=== PATIENT | male | born 1975 | race Caucasian/White ===

== ENCOUNTER 2020-04-16 11:27 | Outpatient (REF) | payer OTHER, SELFPAY | END 2020-04-16 11:28 | disposition home or self-care (01) | LOC: HO.LAB 11:27 | PROVIDERS: Visit Provider Internal Medicine | DX: Z20.828 Contact with and (suspected) exposure to other viral communicable diseases (principal) | CPT/HCPCS: C9803; U0003 ==

== ENCOUNTER 2021-09-22 13:19 | Outpatient (REF) | payer BC, SELFPAY ==
--- NOTE | ~2021-09-22 | XR_ITS ---
EXAMINATION: XR KNEE, LEFT CLINICAL INFORMATION: Pain. COMPARISON: None TECHNIQUE: Four views of the left knee. FINDINGS: There is no fracture. No dislocation. No joint effusion. Moderate to marked degenerative joint disease of the knee. There is joint narrowing and marginal bone spurs at all 3 joint space compartments. This is most severe at the medial femoral tibial joint but there is near [id number] contact of the femur and tibia. No bone erosion. No soft tissue calcification. XR/XR knee LT 4V IMPRESSION: 1. No acute abnormality. 2. Tricompartment degenerative joint disease of the knee.
--- NOTE | ~2021-09-22 | XR_ITS ---
EXAMINATION: XR KNEE, RIGHT CLINICAL INFORMATION: Pain COMPARISON: None TECHNIQUE: Four views of the right knee. FINDINGS: There is no fracture. No dislocation. No joint effusion. Mild joint narrowing of the medial femoral tibial joint. No significant bone spur. No bony erosions. No soft tissue calcification. XR/XR knee RT 4V IMPRESSION: 1. No acute abnormality. 2. Mild degenerative joint disease of the medial femoral tibial compartment.
== END 2021-09-22 13:20 | disposition home or self-care (01) ==
LOC: HO.HMGCX 13:19
PROVIDERS: PCP Internal Medicine
DX: R52 Pain, unspecified (principal)
CPT/HCPCS: 73564

== ENCOUNTER 2022-04-18 16:38 | Outpatient (REF) | payer BC, MEDICAID, SELFPAY ==
[2022-04-18 17:35] LABS: Influenza A PCR POSITIVE (Negative); Influenza B PCR NEGATIVE (Negative); Resp Syncy Virus RNA Qual PCR NEGATIVE (Negative); SARS COV2 PCR INHOUSE NEGATIVE (Negative)
== END 2022-04-18 16:39 | disposition home or self-care (01) ==
LOC: HO.LNP 16:38
PROVIDERS: Visit Provider Internal Medicine
DX: Z20.822 Contact with and (suspected) exposure to COVID-19 (principal); R09.89 Other specified symptoms and signs involving the circulatory and respiratory systems
CPT/HCPCS: 0241U

== ENCOUNTER 2022-06-20 09:48 | Outpatient (REF) | payer BC, MEDICAID, SELFPAY ==
--- NOTE | ~2022-06-20 | XR_ITS ---
EXAMINATION: XR KNEE AP STANDING CLINICAL INFORMATION: Pain COMPARISON: Previous x-ray August 2021 TECHNIQUE: 2 views of each knee FINDINGS: Right: Bone alignment is normal. No fracture or dislocation. Small patellar osteophyte on the sunrise view at the patellofemoral joint. Left: Bone alignment is normal. No fracture or dislocation. Osteoarthritis with joint space narrowing and osteophyte formation at the medial femoral joint. Small osteophytes patellofemoral joint on the sunrise view. XR/XR knee LT 1V IMPRESSION: Bilateral arthritis, left greater than right.
--- NOTE | ~2022-06-20 | XR_ITS ---
EXAMINATION: XR KNEE AP STANDING CLINICAL INFORMATION: Pain COMPARISON: Previous x-ray August 2021 TECHNIQUE: 2 views of each knee FINDINGS: Right: Bone alignment is normal. No fracture or dislocation. Small patellar osteophyte on the sunrise view at the patellofemoral joint. Left: Bone alignment is normal. No fracture or dislocation. Osteoarthritis with joint space narrowing and osteophyte formation at the medial femoral joint. Small osteophytes patellofemoral joint on the sunrise view. XR/XR knee standing BI IMPRESSION: Bilateral arthritis, left greater than right.
--- NOTE | ~2022-06-20 | XR_ITS ---
EXAMINATION: XR KNEE AP STANDING CLINICAL INFORMATION: Pain COMPARISON: Previous x-ray August 2021 TECHNIQUE: 2 views of each knee FINDINGS: Right: Bone alignment is normal. No fracture or dislocation. Small patellar osteophyte on the sunrise view at the patellofemoral joint. Left: Bone alignment is normal. No fracture or dislocation. Osteoarthritis with joint space narrowing and osteophyte formation at the medial femoral joint. Small osteophytes patellofemoral joint on the sunrise view. XR/XR knee RT 1V IMPRESSION: Bilateral arthritis, left greater than right.
== END 2022-06-20 09:49 | disposition home or self-care (01) ==
LOC: HO.HOSX 09:48
PROVIDERS: Visit Provider Physician Assistant
DX: M17.12 Unilateral primary osteoarthritis, left knee (principal); M25.561 Pain in right knee
CPT/HCPCS: 73560; 73565

== ENCOUNTER 2024-09-12 15:00 | Outpatient (AMB) | payer BC, MEDICAID, SELFPAY ==
[2024-09-12 15:03] VITALS: BP 128/88; PULSE 65; O2SAT 96; BMI 30.9
--- NOTE | 2024-09-12 15:03 | MHC.PC.OV ---
Vital Signs 09/12/24 15:03 Height 6 ft 4 in Weight 253 lb 8 oz BMI 30.9 BP 128/88 Blood Pressure Location Lt brachial Position Sitting Pulse 65 Pulse Source Pulse Oximeter Pulse Oximetry (%) 96 Oxygen Delivery Method Room Air Intake Visit Reasons: ANNUAL PE Allergies No Known Allergies [No Known Allergies*] Allergy (Verified 09/12/24 15:08) Medication List - Last Reconciled 09/12/24 by Rani Hutson MD No Known Home Meds Tobacco use date assessed: 09/12/24 Dental Screening Dental Screen Date: 09/12/24 Did you have a dental visit in the last 12 months?: Yes Did you have a dental problem in the last 6 months where you did not have access to dental care?: No Was dental information given to patient?: Patient has dentist HPI ANNUAL PE HPI Details History of Present Illness - The patient is a 49-year-old male presenting for a annual physical examination and request for sexually transmitted diseases (STD) screening. Last time seen was in 2022 - The patient denies any current urogenital symptoms such as penile discharge. - He requests STD testing for personal assurance before engaging in new relationships. - The patient reports no prior laboratory results are available during the visit. - He has a history of arthritis but notes no current swelling in the knee this year and reports being physically active. - The patient underwent colon cancer screening approximately two weeks ago with negative results. - The patient cannot recall the date of his last tetanus vaccination and mentions it was administered over ten years ago. Health Maintenance - STD blood test planned for HIV, herpes, hepatitis B, hepatitis C, and syphilis. - Cholesterol and blood sugar screening recommended, with instructions to fast prior to testing. - Colon cancer screening completed in July, negative result documented. - Tetanus vaccine inquiry and potential administration discussed. Patient Instructions - The patient will undergo blood tests for STD and general health screening after fasting for 10 hours. - Instructions provided on fasting and lab hours for testing. - Encouraged to drink water or black coffee during fasting if desired. - Urine test advised only if symptomatic or for routine checkup. Review of Systems - General: No fever no chills - Neurological: No headaches no dizziness - Ear nose throat: No sore throat no hearing difficulty no ear pain - Cardiovascular: No syncope, no chest pain, no palpitations - Gastrointestinal: No nausea vomiting or diarrhea - Endocrine: No polyuria polydipsia no heat intolerance - Genitourinary: No dysuria - Skin: No new complaints Physical Exam General: Cooperative, healthy appearing, comfortable, no acute distress Orientation: Patient oriented x3 Head: Normal to inspection Ears: Within normal limit visually Nose: Normal external nose present Face and sinus: Normal facial exam Eyes: Appearance normal, extraocular movement intact pupils reactive Neck: Normal visual inspection and supple Respiratory: Normal respiratory effort and able to speak in complete sentences. Clear to auscultation, no stridor Cardiovascular: S1 and S2 RRR GI: Normal to inspection. Soft to palpation and nontender Skin: Turgor normal, no acute findings Neuro: Patient oriented x3, motor sensory intact, balance intact, tandem pass Extremities: Normal to inspection, full range of motion [facility] Social History Housing: House Patient Tobacco Use Status: Never used Tobacco e-Cigarette/Vaping Use: Never Used service: No Current occupational status: employed Cognitive needs: No Hearing needs: No Vision needs: Yes Questionnaire PHQ-9 Over the last 2 weeks, how often have you been bothered by any of the following problems? 1. Little interest or pleasure in doing things: not at all 2. Feeling down, depressed, or hopeless: not at all 3. Trouble falling or staying asleep, or sleeping too much: not at all 4. Feeling tired or having little energy: not at all 5. Poor appetite or overeating: not at all 6. Feeling bad about yourself - or that you are a failure or have let yourself or your family down: not at all 7. Trouble concentrating on things, such as reading the newspaper or watching television: not at all 8. Moving or speaking so slowly that other people could have noticed. Or the opposite - being so fidgety or restless that you have been moving around a lot more than usual: not at all 9. Thoughts that you would be better off or of hurting yourself in some way: not at all Total score: 0 Depression Screening Interpretation: Negative Depression Screening Done: Yes 05262 - PHQ-9 Billing: Yes Source: Developed by Drs. Alec Hollis, Therese Yusuf, Elmer Canales and colleagues, with an educational camilo from [employer]. Thrive Questionnaire Date Thrive assessed: 09/12/24 I am a: Patient What is your living situation today?: I have a steady place to live Within the past 12 months, did the food you bought not last and you didn't have the money to get more?: Never true Within the past 12 months, did you worry whether your food would run out before you got money to buy more?: Never true Do you have trouble paying for medicines?: No Do you have trouble getting transportation to medical appointments?: No Do you have trouble paying your heating and electricity bill?: No Do you have trouble taking care of your child, family member or friend?: No Do you have trouble with day-to-day activities such as bathing, preparing meals, shopping, managing finances, etc.?: No Are you currently unemployed and looking for a job?: No Are you interested in more education?: No Please select the resources that you would like help with: None Currently or been in a relationship where the following occur: No concerns reported THRIVE Score: 0 AUDIT C Alcohol Use Questionnaire (AUDIT-C) 1. How often do you have a drink containing alcohol?: Monthly or less 2. How many drinks containing alcohol do you have on a typical day when you are drinking?: 1 or 2 3. How often do you have six or more drinks on one occasion?: Never Total Score: 1 Score Reviewed/Action Taken: Yes ODESSA-7 AMB Questionnaire ODESSA-7 Date ODESSA - 7 assessed: 09/12/24 Feeling nervous, anxious, or on edge: 0 = Not at all Not being able to stop or control worryin = Not at all Worrying too much about different things: 0 = Not at all Trouble relaxin = Not at all Being so restless that it is hard to sit still: 0 = Not at all Becoming easily annoyed or irritable: 0 = Not at all Feeling afraid as if something awful might happen: 0 = Not at all Total ODESSA-7 score (0-4 normal; 5-9 mild; 10-14 moderate; 15-21 severe): 0 Source: Developed by Drs. Alec Hollis, Therese Yusuf, Elmer Canales and colleagues, with an educational camilo from [employer]. ODESSA-7 Assessment Billing ODESSA-7 Assessment Tool: ODESSA-7 Assessment 32645 Physical exam (Primary Care) Vital Signs: Last Vital Signs Pulse 65 09/12/24 15:03 BP 128/88 09/12/24 15:03 Pulse Ox 96 09/12/24 15:03 Oxygen Delivery Method Room Air 09/12/24 15:03 BMI result Body Mass Index 30.9 Tobacco/Smoking Status: Tobacco use Status Tobacco use date assessed 09/12/24 09/12/24 15:09 Patient Tobacco Use Status Never used Tobacco 09/12/24 15:09 e-Cigarette/Vaping Use Never Used 09/12/24 15:09 PHQ-9: PHQ-9 Score PHQ-9: Total score 0 09/12/24 15:24 Depression Screening Interpretation: Negative Thrive Assessment: Date of Thrive Assessment Date Thrive assessed 09/12/24 09/12/24 15:09 Currently or been in a relationship where the following occur: No concerns reported Immunizations Boostrix Tdap 2.5 Lf unit-8 mcg-5 Lf/0.5 mL intramuscular syringe Performing Provider: Rani Hutson MD Performing Location: [facility] Administered by: Nancy Medel CMA on 09/12/24 15:24 Dose Route Admin Location Dispensed Lot Number Expiration Date [facility] Search Marketing [employer]st 0.5 mL IM Left Deltoid 0.5 mL [id number] 12/24/26 [id number] [employer] VIS Given Date VIS Provided VIS Publication Date 09/12/24 Single Vaccine 20 Eligibility Eligibility Date Funding Source Not [facility] Eligible 09/12/24 Private Coding Level of Care Code Est Pt Level 3 (09938) Est Pt Prev Care 40-64y(87051) Diagnoses Encounter for general adult medical examination with abnormal findings Z00.01 Screen for STD (sexually transmitted disease) Z11.3 Class 1 obesity due to excess calories without serious comorbidity with body mass index (BMI) of 30.0 to 30.9 in adult E66.811; E66.09; Z68.30 Obesity classification: adult class 1 (BMI 30 - 34.9) Serious obesity comorbidity presence: without serious comorbidity Body mass index: BMI 30.0-30.9 Additional Codes ODESSA-7 Assessment Billing - ODESSA-7 Assessment Tool: ODESSA-7 Assessment 70047 ([id number]) PHQ-9 - 47426 - PHQ-9 Billing: Yes ([id number]) Assessment & Plan Assessment & Plan (1) Encounter for general adult medical examination with abnormal findings: Code(s): Z00.01 - Encounter for general adult medical examination with abnormal findings Category: Medical (2) Screen for STD (sexually transmitted disease): Code(s): Z11.3 - Encounter for screening for infections with a predominantly sexual mode of transmission Category: Medical (3) Obesity due to excess calories: Code(s): E66.09 - Other obesity due to excess calories Category: Medical Qualifiers: Obesity classification: adult class 1 (BMI 30 - 34.9) Serious obesity comorbidity presence: without serious comorbidity Body mass index: BMI 30.0-30.9 Qualified Code(s): E66.811 - Obesity, class 1; E66.09 - Other obesity due to excess calories; Z68.30 - Body mass index [BMI] 30.0-30.9, adult Plan History of Present Illness - The patient is a 49-year-old male presenting for a annual physical examination and request for sexually transmitted diseases (STD) screening. Last time seen was in 2022 - The patient denies any current urogenital symptoms such as penile discharge. - He requests STD testing for personal assurance before engaging in new relationships. - The patient reports no prior laboratory results are available during the visit. - He has a history of arthritis but notes no current swelling in the knee this year and reports being physically active. - The patient underwent colon cancer screening approximately two weeks ago with negative results. - The patient cannot recall the date of his last tetanus vaccination and mentions it was administered over ten years ago. Health Maintenance - STD blood test planned for HIV, herpes, hepatitis B, hepatitis C, and syphilis. - Cholesterol and blood sugar screening recommended, with instructions to fast prior to testing. - Colon cancer screening completed in July, negative result documented. - Tetanus vaccine inquiry and potential administration discussed. Patient Instructions - The patient will undergo blood tests for STD and general health screening after fasting for 10 hours. - Instructions provided on fasting and lab hours for testing. - Encouraged to drink water or black coffee during fasting if desired. - Urine test advised only if symptomatic or for routine checkup. Orders: Orders Complete Blood Count Auto Diff Today E66.09 - Other obesity due to excess calories, Z00.01 - Encounter for general adult medical examination with abnormal findings, Z11.3 - Encounter for screening for infections with a predominantly sexual mode of transmission Comprehensive Met. Panel Today E66.09 - Other obesity due to excess calories, Z00.01 - Encounter for general adult medical examination with abnormal findings, Z11.3 - Encounter for screening for infections with a predominantly sexual mode of transmission Lipid Panel Today E66.09 - Other obesity due to excess calories, Z00.01 - Encounter for general adult medical examination with abnormal findings, Z11.3 - Encounter for screening for infections with a predominantly sexual mode of transmission TSH reflex Free T4 Today E66.09 - Other obesity due to excess calories, Z00.01 - Encounter for general adult medical examination with abnormal findings, Z11.3 - Encounter for screening for infections with a predominantly sexual mode of transmission Vitamin D 25-OH (D2 and D3) Today E66.09 - Other obesity due to excess calories, Z00.01 - Encounter for general adult medical examination with abnormal findings, Z11.3 - Encounter for screening for infections with a predominantly sexual mode of transmission Hepatitis B Surface Antibody Today E66.09 - Other obesity due to excess calories, Z00.01 - Encounter for general adult medical examination with abnormal findings, Z11.3 - Encounter for screening for infections with a predominantly sexual mode of transmission Syphilis Screen Today E66.09 - Other obesity due to excess calories, Z00.01 - Encounter for general adult medical examination with abnormal findings, Z11.3 - Encounter for screening for infections with a predominantly sexual mode of transmission UA CC w/rflx Micro + Cult Today E66.09 - Other obesity due to excess calories, Z00.01 - Encounter for general adult medical examination with abnormal findings, Z11.3 - Encounter for screening for infections with a predominantly sexual mode of transmission HIV Ab/Ag Today E66.09 - Other obesity due to excess calories, Z00.01 - Encounter for general adult medical examination with abnormal findings, Z11.3 - Encounter for screening for infections with a predominantly sexual mode of transmission Herpes Simplex Virus Ab IgG Today E66.09 - Other obesity due to excess calories, Z00.01 - Encounter for general adult medical examination with abnormal findings, Z11.3 - Encounter for screening for infections with a predominantly sexual mode of transmission Hepatitis C Antibody Today E66.09 - Other obesity due to excess calories, Z00.01 - Encounter for general adult medical examination with abnormal findings, Z11.3 - Encounter for screening for infections with a predominantly sexual mode of transmission TDaP Immunization Today Z23 - Encounter for immunization
--- OUTSIDE RECORDS SUMMARY | 2024-09-12 15:05 | XMS_ITS | Clinical Summary ---
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 Phone Unavailable Primary Care Provider Unavailabl e Social History Tobacco Use Types Packs/Day Years Used Date Smoking Tobacco: Never Assessed Sex and Gender Information Value Date Recorded Sex Assigned at Not on file Legal Sex Male 8:26 AM EST Gender Identity Not on file Sexual Orientation Not on file Plan of Treatment Health Maintenance Due Date Last Done Comments DTaP,Tdap,and Td Vaccines (1 - Tdap) 1992 Hepatitis B Vaccines (1 of 3 - 19+ 3-dose series) 1992 Cholesterol Screening (Lipid Panel) 04/02/2022 Colorectal Cancer Screening: Colonoscopy 04/02/2022 Depression Screening 04/02/2022 HIV Screening 04/02/2022 Hepatitis C Screening 04/02/2022 Social Influencers of Health Screening 04/02/2022 Pneumococcal Vaccine: 50+ Ye ars (1 of 1 - PCV) 08/17/2023 Zoster Vaccines (1 of 2) 08/17/2023 COVID-19 Vaccine (1 - 2023-2 5 season) 2023 Influenza Vaccine (Season Ended) 2024 HIB Vaccines Aged Out No longer eligi ble based on patient's age to complete this topic HPV Vaccines Aged Out No longer eligi ble based on patient's age to complete this topic Hepatitis A Vaccines Aged Out No long er eligible based on patient's age to complete this topic IPV Vaccines Aged Out No longer eligi ble based on patient's age to complete this topic MMR Vaccines Aged Out No longer eligi ble based on patient's age to complete this topic Meningococcal ACWY Vaccine Aged Out N o longer eligible based on patient's age to complete this topic Meningococcal B Vaccine Aged Out No l onger eligible based on patient's age to complete this topic Pneumococcal Vaccine: Pediat rics (0 to 5 Years) and At-Risk Patients (6 to 64 Years) Aged Out No longer eligible b ased on patient's age to complete this topic RSV Immunization Patients Un linus 20 months Aged Out No longer eligible b ased on patient's age to complete this topic Varicella Vaccines Aged Out No longer eligible based on patient's age to complete this topic
== END 2024-09-12 15:36 | disposition home or self-care (01) ==
LOC: HO.HMCC 15:01
PROVIDERS: PCP Internal Medicine; Visit Provider Internal Medicine
DX: Z00.00 Encounter for general adult medical examination without abnormal findings (principal); Z11.3 Encounter for screening for infections with a predominantly sexual mode of transmission; E66.811 Obesity, class 1; Z68.30 Body mass index [BMI] 30.0-30.9, adult; Z23 Encounter for immunization

== ENCOUNTER → 2024-09-12 15:00 | Outpatient (BNVA) | payer BC, SELFPAY | PROVIDERS: PCP Internal Medicine; Visit Provider Internal Medicine | DX: Z00.01 Encounter for general adult medical examination with abnormal findings (principal); Z23 Encounter for immunization; E66.811 Obesity, class 1; E66.09 Other obesity due to excess calories; Z68.30 Body mass index [BMI] 30.0-30.9, adult | CPT/HCPCS: 90471; 90715; 96127 ==

== ENCOUNTER 2024-09-13 06:52 | Outpatient (REF) | payer BC, SELFPAY ==
[2024-09-13 11:16] LABS: MANUAL DIFF FLAG NO
[2024-09-13 11:35] LABS: Appearance Urine Clear; Color Urine Yellow; Glucose Urine UA Negative (Negative); Leukocyte Esterase Urine Negative (Negative); Nitrite Urine Negative (Negative); Specific Gravity - Urine 1.025 (1.005-1.025); Urine Blood Negative (Negative); Urine Ketones Negative (Negative); Urine Protein Trace mg/dL (Neg-Trace)
[2024-09-13 11:36] LABS: Basophils Absolute Auto 0.1 X10*3/uL (0.0-0.2); Basophils Percent Auto 1.4 % (0-2); Eosinophils Absolute Auto 0.1 X10*3/uL (0.0-0.4); Eosinophils Percent Auto 1.8 % (0-4); Hematocrit 45.4 % (42.0-52.0); Hemoglobin 14.5 g/dl (14.0-18.0); Imm Gran Abs Auto 0.02 X10*3/uL (0.00-0.03); Imm Gran Pct Auto 0.4 % (0.0-0.4); Lymphocytes Absolute Auto 1.4 X10*3/uL (1.2-4.9); Lymphocytes Percent Auto 28.1 % (20-40); Mean Corpuscular HGB Conc 31.9 g/dl (31.0-36.0); Mean Corpuscular Hemoglobin 27.2 pg (27.0-33.0); Mean Corpuscular Volume 85.2 fL (80.0-98.0); Mean Platelet Volume 11.6 fL (9.4-12.4); Monocytes Absolute Auto 0.5 X10*3/uL (0.1-1.2); Neutrophils Absolute Auto 3.1 x10*3/uL (2.0-8.3); Neutrophils Percent Auto 59.3 % (45-73); Platelet Count 174 X10*3/uL (160-400); Red Blood Count 5.33 X10*6/uL (4.60-5.80); Red Cell Distribution Width 14.1 % (11.0-16.0); White Blood Count 5.1 X10*3/uL (4.8-10.8)
[2024-09-13 11:49] LABS: Alanine Aminotransferase 34 U/L (0-40); Albumin Level 4.1 g/dL (3.5-5.0); Alkaline Phosphatase 95 U/L (39-117); Anion Gap 12 (12-20); Aspartate Amino Transferase 28 U/L (5-37); Bilirubin Total 0.3 mg/dL (0.0-1.0); Blood Urea Nitrogen 13 mg/dL (9-16); Calcium 9.1 mg/dL (8.4-10.2); Carbon Dioxide 26 mmol/L (22-29); Chloride 108 mmol/L (96-108); Cholesterol 239 mg/dL (<200); Estimated Glomerular Filt Rate > 60; Glucose Random 110 mg/dL (60-115); HDL Cholesterol 43 mg/dL (>40); LDL Cholesterol Calculated 171 mg/dL (<100); Potassium 4.2 mmol/L (3.3-5.1); Sodium 142 mmol/L (135-145); Total Protein 7.3 g/dL (6.5-8.0); Triglycerides 127 mg/dL (<150)
[2024-09-13 11:55] LABS: HBS Num1 0.27 mIU/mL (0-7.99); HIV AB/AG Nonreactive (Nonreactive); HIV Num 1 0.05 S/CO (0.00-0.99); ~HepC Num1 0.11 S/CO (0.00-0.79); ~Hepatitis B Surface Antibody NONREACTIVE (Nonreactive); ~Hepatitis C Antibody Nonreactive (Nonreactive)
[2024-09-13 11:57] LABS: Syphilis Screen Nonreactive (Nonreactive)
[2024-09-13 12:09] LABS: TSH reflex Free T4 1.78 uIU/mL (0.32-4.0)
[2024-09-16 06:49] LABS: Herpes Simplex Type 2 IgG <0.90 index
[2024-09-18 14:19] LABS: Vitamin D 25-OH, D2 <4 ng/mL; Vitamin D 25-OH, D3 19 ng/mL; Vitamin D 25-OH, Total 19 ng/mL (30-100)
== END 2024-09-13 06:53 | disposition home or self-care (01) ==
LOC: HO.HMGCLDS 06:52
PROVIDERS: PCP Internal Medicine; Visit Provider Internal Medicine
DX: Z00.01 Encounter for general adult medical examination with abnormal findings (principal); Z11.3 Encounter for screening for infections with a predominantly sexual mode of transmission; E66.09 Other obesity due to excess calories
CPT/HCPCS: 36415; 80053; 80061; 81003; 82306; 84443; 85025; 86695; 86696; 86706; 86780; 86803; 87389

== ENCOUNTER 2024-11-17 11:07 | Outpatient (AMB) | payer BC, SELFPAY ==
--- NOTE | 2024-11-17 11:51 | AM.OFFWIN_ITS ---
Intake Vital Signs 11/17/24 11:52 Height 6 ft 4 in Weight 257 lb BMI 31.3 BP 124/76 Blood Pressure Location Lt brachial Position Sitting Pulse 70 Pulse Source Pulse Oximeter Temp 97.5 F Temp Source Oral Pulse Oximetry (%) 96 Oxygen Delivery Method Room Air Intake Visit Reasons: EP-bees sting, rt foot and rt rib Intake Note: c/o redness, weeping, itchiness and burning to bee sting sites on right chest and right inner ankle Patient Tobacco Use Status: Never used Tobacco Allergies No Known Allergies (No Known Allergies*) Allergy (Verified 11/17/24 11:54) Do you need a note to return to daycare/school/sports/work: Yes HPI HPI Comments History of Present Illness Details History - The patient is a 49-year-old male pres enting with a bee sting resulting in cellulitis. - The patient was stung by a bee while m owing the lawn on Sunday. - He experienced immediate pain and swel ling at the site of the sting. - The area became erythematous and warm on the right lateral chest and right ankle. - No fever or chills were reported. - The patient attempted to treat the bee hive with bleach and ammonia, which resulted in further agitation of the bees. - He denies fever or chills. He denies j oint pain. He denies CP, SOB, wheezing, lip or tongue swelling. - He has never had an allergic reaction to bees in the past. Physical Exam General: Cooperative, healthy appearing, comfortable, no acute distress and well developed Orientation: Patient oriented x3 Limitations: No limitations Respiratory: Normal respiratory effort and able to speak in complete sentences. Clear to auscultation bilaterally. No w/r/r noted. Cardiovascular: RRR, no m/r/g noted. Normal S1 and S2 Skin: Bite noted on the right lateral chest wall with surrounding erythema, warmth and induration. Small open area noted on the right inner ankle with surrounding erythema and warmth. No discharge noted. Patient was informed and verbally consented to the use of an ambient scribe for clinic note documentation during this visit [facility] Social History Housing: House Patient Tobacco Use Status: Never used Tobacco e-Cigarette/Vaping Use: Never Used service: No Current occupational status: employed Cognitive needs: No Hearing needs: No Vision needs: Yes Review of Systems Const All systems reviewed & are unremarkable except as noted in HPI and below Physical Exam Vital Signs: Last Vital Signs Temp 97.5 F 11/17/24 11:52 Pulse 70 11/17/24 11:52 BP 124/76 11/17/24 11:52 Pulse Ox 96 11/17/24 11:52 Oxygen Delivery Method Room Air 11/17/24 11:52 BMI result Body Mass Index 31.3 Assessment & Plan Assessment & Plan (1) Bee sting reaction: Code(s): T63.441A - Toxic effect of venom of bees, accidental (unintentional), initial encounter Qualifiers: Encounter type: initial encounter Injury intent: accidental or unintentional Qualified Code(s): T63.441A - Toxic effect of venom of bees, accidental (unintentional), initial encounter (2) Cellulitis: Code(s): L03.90 - Cellulitis, unspecified Qualifiers: Site of cellulitis: trunk Site of cellulitis of trunk: chest wall Qualified Code(s): L03.313 - Cellulitis of chest wall Plan Most likely bee sting reaction with cellulitis Plan - Ice to the area - Benadryl as needed for the itching - Tylenol or motrin as needed for pain or fever. - Prescribed antibiotics to address the cellulitis. - Advised to monitor for any signs of systemic infection such as fever or chills. - Provided a note for work clearance. Medications: New cephalexin 500 mg PO Q6H 40 caps 0RF 10 days Coding Level of Care Code Est Pt Level 3 (49565) Diagnoses Bee sting reaction, accidental or unintentional, initial encounter T63.441A Encounter type: initial encounter Injury intent: accidental or unintentional Cellulitis of chest wall L03.313 Site of cellulitis: trunk Site of cellulitis of trunk: chest wall
[2024-11-17 11:52] VITALS: BP 124/76; PULSE 70; TEMP 36.4; O2SAT 96; BMI 31.3
--- OUTSIDE RECORDS SUMMARY | 2024-11-17 12:17 | XMS_ITS | Clinical Summary ---
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
== END 2024-11-17 13:07 | disposition home or self-care (01) ==
PROVIDERS: PCP Internal Medicine; Visit Provider Physician Assistant Medical
DX: T63.441A Toxic effect of venom of bees, accidental (unintentional), initial encounter (principal); L03.313 Cellulitis of chest wall